=== PATIENT | female | born 1970 | race Caucasian/White ===

== ENCOUNTER 2017-02-08 11:19 | Outpatient (CLI) | payer OTHER | END 2017-02-08 11:20 | disposition home or self-care (01) | LOC: LABBT 11:19 | PROVIDERS: ATTEND Surgery | DX: Z01.818 Encounter for other preprocedural examination (principal); M79.9 Soft tissue disorder, unspecified ==

== ENCOUNTER 2017-02-15 07:59 | Day surgery (SDC) | payer OTHER ==
[2017-02-08 11:58] VITALS: BMI 33.9
[2017-02-15] MEDS ORDERED: Midazolam HCl 2 mg/2 ml Vial ONE (09:21)
[2017-02-15] MEDS ORDERED: CEFAZOLIN/Water 2 GM/20 ML SYRINGE ONE (10:05)
[2017-02-15] MEDS ORDERED: Bupivacaine/Epinephrine 0.25% 30 ML VIAL ONE (10:12)
[2017-02-15] MEDS ORDERED: Fentanyl 100 MCG/2 ML VIAL ONE (10:19)
--- NOTE | 2017-02-15 11:24 | OP ---
DATE OF PROCEDURE: 02/15/2017 PREOPERATIVE DIAGNOSIS: Soft tissue mass, left flank, 8 cm. POSTOPERATIVE DIAGNOSIS: Soft tissue mass, left flank, 8 cm. PROCEDURE: Excision of left flank soft tissue mass, 8 cm. SURGEON: Sundar Ray M.D. ANESTHESIA: General. ESTIMATED BLOOD LOSS: Minimal. COMPLICATIONS: None. SPECIMEN: Soft tissue mass PROCEDURE IN DETAIL: The patient was taken to the operating room and placed supine position on the t able. After general anesthetic was obtained, a bump was placed on his left hip. The left hip and fl ank was all prepped and draped in a sterile fashion. Oblique incision made over the palpable abnorma lity. Dissection was taken down to the soft tissue mass. It was dissected away from the subcutaneou s tissues and removed. It was 8 cm plus in diameter. Sent to path for final diagnosis. The wound w as irrigated. Local anesthetic was applied. The wound was closed in multiple layers using Vicryl an d Monocryl and Dermabond was applied to the skin. The patient was en route to recovery in stable con dition. All instrument counts, needle counts, and lap counts were correct.
[2017-02-15] MEDS ORDERED: Lidocaine 1% PF 5 ML VIAL ONE (15:39)
[2017-02-15] MEDS ORDERED: Propofol 200 MG/20 ML VIAL ONE (15:39)
== END 2017-02-15 13:25 | disposition home or self-care (01) ==
LOC: SDC 07:59
PROVIDERS: ATTEND Surgery
PROC: 0JB80ZX Excision of Abdomen Subcutaneous Tissue and Fascia, Open Approach, Diagnostic (ICD-10-PCS; principal; 2017-02-15)
PROC: 0JQ80ZZ Repair Abdomen Subcutaneous Tissue and Fascia, Open Approach (ICD-10-PCS; principal; 2017-02-15)
DX: D17.1 Benign lipomatous neoplasm of skin and subcutaneous tissue of trunk (principal); M17.11 Unilateral primary osteoarthritis, right knee; E66.9 Obesity, unspecified; Z68.33 Body mass index [BMI] 33.0-33.9, adult; Z79.899 Other long term (current) drug therapy; Z90.49 Acquired absence of other specified parts of digestive tract; Z98.890 Other specified postprocedural states; Z97.5 Presence of (intrauterine) contraceptive device
CPT/HCPCS: 88304; J2001; J2250; J2704; J3010

== ENCOUNTER 2017-03-02 06:49 | Outpatient (CLI) | payer OTHER | END 2017-03-02 06:50 | disposition home or self-care (01) | LOC: BICMAMMO 06:49 | PROVIDERS: ATTEND Obstetrics & Gynecology | DX: N63.20 Unspecified lump in the left breast, unspecified quadrant (principal); N63.10 Unspecified lump in the right breast, unspecified quadrant; R92.1 Mammographic calcification found on diagnostic imaging of breast | CPT/HCPCS: 77066; G0204; G0279 ==

== ENCOUNTER 2017-04-02 09:12 | Outpatient (CLI) | payer OTHER | END 2017-04-02 09:13 | disposition home or self-care (01) | LOC: CTENTCT 09:12 | PROVIDERS: ATTEND Otolaryngology Plastic Surgery within the Head & Neck | DX: J32.9 Chronic sinusitis, unspecified (principal) | CPT/HCPCS: 70486 ==

== ENCOUNTER 2017-07-02 08:38 | Outpatient (CLI) | payer OTHER | END 2017-07-02 08:39 | disposition home or self-care (01) | LOC: CTENTCT 08:38 | PROVIDERS: ATTEND Otolaryngology Plastic Surgery within the Head & Neck | DX: J32.8 Other chronic sinusitis (principal) | CPT/HCPCS: 70486 ==

== ENCOUNTER 2017-07-25 08:46 | Day surgery (SDC) | payer OTHER ==
[2017-07-24 13:01] VITALS: BMI 33.0
[2017-07-25] MEDS ORDERED: Oxymetazoline HCl 0.05% ( 15 ML ) ONE ×3 (09:45→13:27)
[2017-07-25] MEDS ORDERED: Midazolam HCl 2 mg/2 ml Vial ONE ×2 (10:29→11:06)
[2017-07-25] MEDS ORDERED: Lidocaine 1% w/Epinephrine 1:200K 30 ML VIAL ONE ×2 (10:46→11:12)
[2017-07-25] MEDS ORDERED: Bacitracin Zinc Ointment 30 gm TUBE ONE (10:46)
[2017-07-25] MEDS ORDERED: Ondansetron HCl/PF 4 MG/2 ML Vial ONE (11:06)
[2017-07-25] MEDS ORDERED: Fentanyl 100 MCG/2 ML VIAL ONE ×3 (11:06→14:17)
[2017-07-25] MEDS ORDERED: PROPOFOL 200 MG/20 ML VIAL ONE (12:28)
[2017-07-25] MEDS ORDERED: Succinylcholine Chloride 20 MG/ML 10 ml SYRINGE FS ONE (12:28)
[2017-07-25] MEDS ORDERED: Lidocaine 1% PF 5 ML VIAL ONE (12:28)
--- NOTE | 2017-07-26 12:50 | OP ---
PREOPERATIVE DIAGNOSES: 1. Chronic rhinosinusitis. 2. Bilateral middle turbinate ryan bullosa. 3. Bilateral inferior turbinate hypertrophy. PROCEDURES PERFORMED: 1. Bilateral endoscopic sinus surgery, total ethmoidectomies. 2. Bilateral endoscopic sinus surgery, maxillary antrostomies. 3. Bilateral endoscopic sinus surgery, frontal sinusotomies. 4. Bilateral endoscopic resection of ryan bullosa. 5. Bilateral inferior turbinate submucosal resection. SURGEON: Wilson Jenkins M.D. ESTIMATED BLOOD LOSS: 20 mL. COMPLICATIONS: None. ANESTHESIA: GETA. PROCEDURE IN DETAIL: The patient was taken to the operating room and placed supine on the table. Ge neral endotracheal anesthesia was obtained by the Anesthesia staff. Tube was secured in the left low er lip. The patient was placed in the beach chair position. Following this, Afrin pledgets were marcin morris in the nasal cavity. The patient was prepped and draped for standard nasal procedure. Following this, the Afrin pledgets were removed. 0-degree endoscope was advanced in the nasal cavity to encou nter widened middle turbinates bilaterally. Injections of 1% lidocaine with 1:100,000 epinephrine wa s made into the middle turbinates, inferior turbinates, and lateral nasal wall bilaterally. Followin g this, the sickle knife was used to make a vertical incision on the inferior portion of the middle t urbinates and the ryan bullosa medial and inferior lozada were removed using the microdebrider. Fol lowing this, the uncinate process was identified bilaterally and was anteriorly fractured using a bal l-ended probe. The uncinate was then removed using the microdebrider and upbiting Blakesley forceps. Following this, the natural maxillary sinus ostia was identified and was gently widened using the c urved microdebrider and straight Blakesley forceps. Following this, the ethmoidal bulla was identifi ed bilaterally and was punctured on its medial and inferior aspect with the microdebrider and was rem marry. The grand lamella was then identified and was punctured into the posterior ethmoidal cells. W orking from posterior to anterior, the ethmoidal cells were opened in a mucosal-sparing technique. F ollowing this, 45-degree scope and the 40-degree microdebrider blade was then used to further open th e frontal recess and frontal sinus ostia bilaterally. Following this, the inferior turbinates were t hen punctured on their anterior inferior quadrant and submucosal resection was performed of the anter ior inferior portions of the inferior turbinates bilaterally. Following this, the nasal cavity was i rrigated. Meropacks were placed. Patient tolerated the procedure well.
== END 2017-07-25 16:45 | disposition home or self-care (01) ==
LOC: SDC 08:46
PROVIDERS: ATTEND Otolaryngology Plastic Surgery within the Head & Neck
PROC: 099S8ZZ Drainage of Right Frontal Sinus, Via Natural or Artificial Opening Endoscopic (ICD-10-PCS; principal; 2017-07-25)
PROC: 099Q8ZZ Drainage of Right Maxillary Sinus, Via Natural or Artificial Opening Endoscopic (ICD-10-PCS; principal; 2017-07-25)
PROC: 09TL8ZZ Resection of Nasal Turbinate, Via Natural or Artificial Opening Endoscopic (ICD-10-PCS; principal; 2017-07-25)
PROC: 09TV8ZZ Resection of Left Ethmoid Sinus, Via Natural or Artificial Opening Endoscopic (ICD-10-PCS; principal; 2017-07-25)
PROC: 099R8ZZ Drainage of Left Maxillary Sinus, Via Natural or Artificial Opening Endoscopic (ICD-10-PCS; principal; 2017-07-25)
PROC: 099T8ZZ Drainage of Left Frontal Sinus, Via Natural or Artificial Opening Endoscopic (ICD-10-PCS; principal; 2017-07-25)
PROC: 09TU8ZZ Resection of Right Ethmoid Sinus, Via Natural or Artificial Opening Endoscopic (ICD-10-PCS; principal; 2017-07-25)
DX: J32.8 Other chronic sinusitis (principal); J34.3 Hypertrophy of nasal turbinates; J34.89 Other specified disorders of nose and nasal sinuses; M19.90 Unspecified osteoarthritis, unspecified site; E66.9 Obesity, unspecified; Z68.33 Body mass index [BMI] 33.0-33.9, adult; Z98.890 Other specified postprocedural states
CPT/HCPCS: 36415; 85014; 96374; J2250; J2405; J3010

== ENCOUNTER 2018-10-08 09:35 | Emergency (ER) | payer OTHER ==
[2018-10-08] MEDS ORDERED: Ondansetron PF 4 MG/2 ML Vial ONE (10:04)
[2018-10-08 10:11] LABS: #Basophils 0.1 thou/uL (0.0-0.2); #Eosinphils 0.2 thou/uL (0.0-0.7); #Lymphocytes 3.1 thou/uL (1.20-3.40); #Monocytes 0.6 thou/uL (0.11-0.59); #Neutrophils 7.2 thou/uL (1.40-6.50); %Basophils 0.9 % (0.0-1.0); %Eosinophils 2.2 % (0.0-10.0); %Lymphocytes 27.8 % (21.0-51.0); %Monocytes 5.4 % (0.0-10.0); %Neutrophils 63.7 % (42.0-75.0); Hemoglobin 13.7 g/dL (12.0-16.0); Mean Corpuscular HGB CONC 33.8 g/dL (32.0-36.0); Mean Corpuscular Hemoglobin 30.6 pg (27.0-31.0); Mean Corpuscular Volume 90.4 fL (78.0-98.0); Mean Platelet Volume 6.6 fL (7.4-10.4); Platelet Count 278 thou/uL (130-400); RBC Distribution Width 11.7 % (11.5-14.5); White Blood Cell (WBC) Count 11.2 thou/uL (4.8-10.8)
--- NOTE | 2018-10-08 10:21 | RAD ---
PORTABLE CHEST 1 VIEW: Date: 10/08/18 Time: 0955 hours HISTORY: Syncope. FINDINGS: The heart size is normal. The lungs are expanded without focal areas of consolidation, pneumothoraces , or pleural effusions. IMPRESSION: No acute process. POS: [facility]
[2018-10-08 10:32] LABS: ALT (SGPT) 11 U/L (8-55); AST (SGOT) 15 U/L (5-34); Alkaline Phosphatase 41 U/L (40-150); Anion Gap 14 mmol/L (10-20); BUN (Urea Nitrogen) 17 mg/dL (7.0-18.7); Bilirubin, Total 0.5 mg/dL (0.2-1.2); Calc. Creatinine Clearance 0 mL/min (70-130); Calcium 9.1 mg/dL (7.8-10.44); Carbon Dioxide 22 mmol/L (22-29); Chloride 104 mmol/L (98-107); Estimated GFR-MDRD 80; Globulin 2.6 g/dL (2.4-3.5); Glucose 177 mg/dL (70-105); Potassium 4.2 mmol/L (3.5-5.1); Protein, Total 6.6 g/dL (6.0-8.3); Sodium 136 mmol/L (136-145)
== END 2018-10-08 11:33 | disposition home or self-care (01) ==
LOC: ERS 09:35
DX: R55 Syncope and collapse (principal)
CPT/HCPCS: 71045; 80053; 85025; 93005; 96361; 96374; J2405

== ENCOUNTER 2018-10-16 08:56 | Outpatient (CLI) | payer OTHER ==
--- NOTE | 2018-10-16 10:12 | MMO ---
Left Breast MAMMO Unilat Diag DDI LT+MAXINE. CLINICAL HISTORY: Patient is 48 years old and is seen for diagnostic exam. The patient family history of breast cancer is unknown. The patient has no personal history of cancer. VIEWS: The views performed were: left craniocaudal spot compression with tomosynthesis; left mediolateral oblique spot compression with tomosynthesis; and left mediolateral with tomosynthesis. FILMS COMPARED: The present examination has been compared to prior imaging studies performed at [facility] on 10/08/2018, and at [facility] on 05/01/2016, 03/02/2017 and 10/16/2018. MAMMOGRAM FINDINGS: There are scattered fibroglandular densities. There is a new equal density, oval mass with circumscribed margins seen in the left breast. IMPRESSION: NEW MASS IN THE LEFT BREAST IS SUSPICIOUS. AN ULTRASOUND-GUIDED BREAST BIOPSY IS RECOMMENDED. THE RESULTS OF THIS EXAM WERE SENT TO THE PATIENT. ACR BI-RADS Category 4 - Suspicious abnormality - biopsy should be considered MAMMOGRAPHY NOTE: 1. A negative mammogram report should not delay a biopsy if a dominant of clinically suspicious mass is present. 2. Approximately 10% to 15% of breast cancers are not detected by mammography. 3. Adenosis and dense breasts may obscure an underlying neoplasm. Reported by: HOLLY SOLIS MD Electonically Signed: [id number]
--- NOTE | 2018-10-16 10:40 | ULT ---
LEFT BREAST SONOGRAM: HISTORY: Left breast mass. Abnormal mammogram. FINDINGS: Sonographic evaluation of the lateral aspect of the left breast, in the region of mammographic abnorm ality, shows a lobulated, slightly heterogeneous, hypoechoic mass with well defined margins. It lenny ures up to 1.1 cm in length x 0.7 cm in depth and correlates with the mammographic abnormality. IMPRESSION: New solid mass, lateral aspect left breast. BI-RADS category 4-Suspicious findings, tissue sampling is suggested. Findings were called to [place] at the office of Dr. Talavera. The patient will be scheduled for a so nographic-guided needle biopsy. CODE CR POS: [facility]
--- NOTE | 2018-10-16 10:51 | MMO ---
Left Breast MAMMO Unilat Diag DDI LT. CLINICAL HISTORY: Patient is 48 years old and is seen for diagnostic exam. The patient family history of breast cancer is unknown. The patient has no personal history of cancer. VIEWS: The views performed were: left craniocaudal and left mediolateral oblique. FILMS COMPARED: The present examination has been compared to prior imaging studies performed at [facility] on 10/08/2018, and at [facility] on 03/02/2017 and 10/16/2018. MAMMOGRAM FINDINGS: There are scattered fibroglandular densities. There is a new oval mass with associated biopsy clip seen in the left breast. IMPRESSION: NEW MASS IN THE LEFT BREAST IS CONFIRMED UTILIZING POST PROCEDURE MAMMOGRAM. THE RESULTS OF THIS EXAM WERE SENT TO THE PATIENT. MAMMOGRAPHY NOTE: 1. A negative mammogram report should not delay a biopsy if a dominant of clinically suspicious mass is present. 2. Approximately 10% to 15% of breast cancers are not detected by mammography. 3. Adenosis and dense breasts may obscure an underlying neoplasm. Reported by: HOLLY SOLIS MD Electonically Signed: [id number]
--- NOTE | 2018-10-16 12:38 | ULT ---
SONOGRAPHIC GUIDED LEFT BREAST MASS BIOPSY: 10/16/18 HISTORY: Left breast mass. FINDINGS: After explaining the procedure and answering all questions, the hypoechoic mass at the lateral aspect of the left breast was again visualized. Sterile technique, buffered local anesthesia, sonographic g uidance, and a superior approach were used to carefully advance the tip of a 14 gauge biopsy needle t o the level of the hypoechoic mass. Position was confirmed with sonography. A total of three core spe cimens were obtained and eventually submitted to Pathology for evaluation. Localization clip was plac ed in the biopsy bed under sonographic guidance. Needle was removed. Patient tolerated the procedure well and was eventually dismissed in good condition. IMPRESSION: Technically successful sonographic guided left breast mass biopsy. Pathology is pending. POS: [facility]
== END 2018-10-16 08:57 | disposition home or self-care (01) ==
LOC: BICMAMMO 08:56
PROVIDERS: ATTEND Obstetrics & Gynecology
DX: N63.20 Unspecified lump in the left breast, unspecified quadrant (principal); Z80.3 Family history of malignant neoplasm of breast
CPT/HCPCS: 19083; 19100; 76942; 88305; 88341; 88342; G0279